=== PATIENT | female | born 1995 | race Caucasian/White ===

== ENCOUNTER 2018-09-11 17:07 | Emergency (ER) | payer BC, OTHER ==
[~2018-09-11] VITALS: Ht 157.5 cm; Wt 68.0 kg
[2018-09-11] MEDS ORDERED: KETOROLAC 30 MG/ML VIAL IVP ONE (17:30)
[2018-09-11] MEDS ORDERED: ORPHENADRINE 60 MG/2 ML (NORFLEX) AMP IV ONE (17:30)
--- OUTSIDE RECORDS SUMMARY | 2018-09-11 17:34 | XMS REPORT ---
Author Author ASHELY CHRISTOPHER Organization [facility] Address [address] [place] [address] Care Team Providers Care Group Home Paraprofessional Name Role Phone CHRISTOPHER LUND Unavailable PROBLEMS Unknown Problems ALLERGIES No Known Allergies ENCOUNTERS Encounter Location Date Diagnosis [place] [address] [id number] [place] [address] Jan, IUD surveillance Z30.431 [place] [address] [place] [id number] [place] [address] [phone]- 6655 Nov, Encounter for IUD insertion Z30.430 [place] [address] [address] Nov, Positive test Z32.01 [place] [address] [place] [id number] [place] [address] 92446- 0558 Nov, Positive test Z32.01 [place] [address] [place] [id number] [place] [address] 63485- [phone] Oct, Encounter for education about contraceptive use Z30.09 IMMUNIZATIONS No Known Immunizations SOCIAL HISTORY Never Assessed REASON FOR VISIT IUD Insertion -- avinash espinoza, consent signed, HCG negative PLAN OF CARE Activity Details Follow Up 4W. 4 Weeks Reason: Pending Test TEST, URINE (IN HOUSE) VITAL SIGNS Height 5'2" in 2017-12-04 Weight 148.0 lbs 2017-12-04 Temperature 98.0 degrees Fahrenheit 2017-12-04 Heart Rate 68 bpm 2017-12-04 Respiratory Rate 18 2017-12-04 BMI 27.07 kg/m2 2017-12-04 Blood pressure systolic 116 mmHg 2017-12-04 Blood pressure diastolic 68 mmHg 2017-12-04 MEDICATIONS Medication Instructions Dosage Frequency Start Date End Date Duration Status Юлия 13.5 MG as directed Nov, Active RESULTS No Results PROCEDURES Procedure Date Ordered Result Body Site URINE TEST December 04, 2017 INSERT INTRAUTERINE DEVICE December 04, 2017 INSTRUCTIONS MEDICATIONS ADMINISTERED No Known Medications
--- OUTSIDE RECORDS SUMMARY | 2018-09-11 17:34 | XMS REPORT | Continuity of Care Document ---
Author Author [facility] Organization [facility] Address Unknown Phone Unavailable Support Name Relationship Address Phone ALONDRA BARR MD Caregiver [address] [place] [address] [place] [address] Unavailable EVETTE LUDWIG Next Of Kin [address] [place] [address] Insurance Providers Guarantor Boy Ludwig Address [address] [place] [address] Email [email or web address] [employer] Other Policy Number [id number] Subscriber's Name VaniJonathan parker Relationship 19 Child Group Number [id number] Advance Directives Directive Response Recorded Date/Time Advanced Directives Type None 01/03/16 1:48am Chief Complaint and Reason for Visit Chief Complaint Back Pain or Injury Reason for Visit Back pain Pyelonephritis Problems Past Problems Medical Problem Onset Date Back pain Unknown Pyelonephritis Unknown Medications Current Home Medications Medication Dose Units Route Directions Days Qty Instructions Start Date Ciprofloxacin Hcl 500 Mg Tablet 500 Mg Oral Twice A Day 14 Tablet 01/03/16 Cyclobenzaprine Hcl 10 Mg Tablet 10 Mg Oral Three Times A Day as needed for Muscle Spasm 40 Tablet 01/03/16 Diclofenac Sodium 75 Mg Tablet. 75 Mg Oral Twice Daily With Meals 20 Tablet 01/03/16 Norgestimate-Ethinyl Estradiol (Sprintec 28 Day Tablet) 1 Tab Tablet 1 Tab Oral Daily 01/03/16 Social History Social History Problem Response Recorded Date/Time Onset Date Status Chewing Tobacco Status No 01/03/2016 1:54am Not Applicable Not Applicable Hx Substance Use No 01/03/2016 1:54am Not Applicable Not Applicable Hx Alcohol Use No 01/03/2016 1:54am Not Applicable Not Applicable Tobacco Usage none 01/03/2016 2:44am Not Applicable Not Applicable Query Response Start Date Stop Date Smoking Status Never smoker Hospital Discharge Instructions No hospital discharge instructions. Plan of Care Discharge Date 01/03/16 4:38am Disposition 01 DISCHARGED HOME, SELF-CARE Condition at Discharge Improved Instructions/Education Provided Low Back Pain Kidney Infection Prescriptions See Medication Section Referrals ULISSES BRUNSON MD Order Date: 1 Week Address: [address] [place] [address] [place] [address] Note: Additional Instructions/Education Rest. Drink plenty of fluids--especially those containing cranberry juice. Cipro 500mg twice daily for 7 days (antibiotic). Diclofenac 75mg twice daily with food--as needed for pain. Cyclobenzaprine 10mg--1 tablet 3 times daily as needed for muscle spasms. RETURN IF WORSENING. Care Plan and Goals Physician Care Plan Problem: Pyelonephritis. Back strain. Goal: Follow up with primary care provider Instructions: Take medications and follow care plan as discussed/written Functional Status No functional status results. Allergies, Adverse Reactions, Alerts Allergen Type Severity Reaction Status Last Updated Pertussis Vaccines Allergy Unknown DEHYDRATION,FEVER Active 01/03/16 Immunizations Query Response on File Recorded Date/Time Influenza Vaccine Hx NO 01/03/16 1:54am Vital Signs Acute Vital Signs Vital Response Date/Time Temperature (Fahrenheit) 98.0 deg F (96.8 - 99.1) 01/03/2016 4:32am Temperature (Calculated Celsius) 36.79935 degrees C (36.0 - 37.3) 01/03/2016 4:32am Pulse Rate (adult) 66 bpm (60 - 100) 01/03/2016 4:32am Respiratory Rate 17 breaths/min (10 - 20) 01/03/2016 4:32am O2 Sat by Pulse Oximetry 98 % (90 - 100) 01/03/2016 4:32am Blood Pressure 97/66 mm Hg 01/03/2016 4:32am Height (Feet) 5 feet 01/03/2016 1:50am Height (Inches) 2.00 inches 01/03/2016 1:50am Weight (Kilograms) 66.600 kg 01/03/2016 1:50am Body Mass Index (BMI) 26.0 01/03/2016 1:50am Results Laboratory Results Test Name Result Units Flags Reference Collection Date/Time Result Date/ Time Comments White Blood Count 16.0 T/MM3 H 4.5-11.0 01/03/2016 2:32am 01/03/2016 2: 42am Red Blood Count 4.64 M/MM3 4.00-5.20 01/03/2016 2:01/03/2016 2: 42am Hemoglobin 14.1 GM/DL 12-16 01/03/2016 2:3201/03/2016 2:42am Hematocrit 42.3 % 36-46 01/03/2016 2:3201/03/2016 2:42am Mean Corpuscular Volume 91.2 UM3 80-100 01/03/2016 2:01/03/2016 2: 42am Mean Corpuscular Hemoglobin 30.4 UUG 26-34 01/03/2016 2:2015 2:42am Mean Corpuscular Hemoglobin Concent 33.3 GM/DL 31-37 01/03/2016 2:01/03/2016 2:42am RDW Standard Deviation 40.6 FL 36.9-50.2 01/03/2016 2:01/03/2016 2 :42am Platelet Count 301 T/MM3 130-400 01/03/2016 2:3201/03/2016 2:42am Mean Platelet Volume 9.0 UM3 L 9.4-12.4 01/03/2016 2:01/03/2016 2: 42am Neutrophils (%) (Auto) 72.1 % H 33-66 01/03/2016 2:01/03/2016 2: 42am Lymphocytes (%) (Auto) 18.2 % L 23-45 01/03/2016 2:01/03/2016 2: 42am Monocytes (%) (Auto) 5.8 % 0-9.0 01/03/2016 2:01/03/2016 2:42am Eosinophils (%) (Auto) 3.3 % 0-4 01/03/2016 2:01/03/2016 2:42am Basophils (%) (Auto) 0.4 % 0-2 01/03/2016 2:01/03/2016 2:42am Immature Granulocyte % (Auto) 0.2 % 0.0-0.5 01/03/2016 2:2015 2:42am Absolute Neutrophils (auto) 11.5 T/MM3 H 1.8-7.7 01/03/2016 2:3201/02 2:42am Absolute Lymphocytes (auto) 2.9 T/MM3 1-4.8 01/03/2016 2:322015 2:42am Absolute Monocytes (auto) 0.9 T/MM3 H 0-0.8 01/03/2016 2:32am 2015 2:42am Absolute Eosinophils (auto) 0.5 T/MM3 0-0.5 01/03/2016 2:322015 2:42am Absolute Basophils (auto) 0.1 T/MM3 0-0.2 01/03/2016 2:3201/03/2016 2:42am Absolute Immature Granulocyte (auto 0.03 T/MM3 0.00-0.03 01/03/2016 2: 3201/03/2016 2:42am Icterus Index < 2 0-7 01/03/2016 2:3201/03/2016 2:41am Chemistry Specimen Hemolysis < 15 0-25 01/03/2016 2:3201/03/2016 2 :41am 0-25: Specimen Exhibited No Hemolysis. Turbidity < 20 0-20 01/03/2016 2:3201/03/2016 2:41am Sodium Level 139 MEQ/L 134-144 01/03/2016 2:3201/03/2016 2:41am Potassium Level 3.8 MEQ/L 3.6-5 01/03/2016 2:3201/03/2016 2:41am Chloride Level 106 MEQ/L 98-107 01/03/2016 2:3201/03/2016 2:41am Carbon Dioxide Level 20 MEQ/L L 22-30 01/03/2016 2:3201/03/2016 2: 41am Anion Gap 13 MEQ/L 5-15 01/03/2016 2:32am 01/03/2016 2:41am Blood Urea Nitrogen 11.0 MG/DL 7-17 01/03/2016 2:3201/03/2016 2: 41am Creatinine 0.6 MG/DL L 0.7-1.2 01/03/2016 2:3201/03/2016 2:41am BUN/Creatinine Ratio 18 RATIO 6-26 01/03/2016 2:3201/03/2016 2:41am Glomerular Filtration Rate Calc 129 01/03/2016 2:32am 01/03/2016 2: 41am Glucose Level 99 MG/DL 65-110 01/03/2016 2:3201/03/2016 2:41am Calculated Osmolality 267 MOSM/KG 261-280 01/03/2016 2:3201/03/2016 2:41am Calcium Level 9.4 MG/DL 8.4-10.2 01/03/2016 2:32am 01/03/2016 2:41am Urine Collection Type [place] 01/03/2016 2:322015 2:41am <1ML READ MICROSCOPIC UNSPUN --- 01/03/16 0240 --- USPEC previously reported as: [place] Urine Color YELLOW YELLOW 01/03/2016 2:3201/03/2016 2:37am Urine Turbidity CLEAR CLEAR 01/03/2016 2:32am 01/03/2016 2:37am Urine Specific [place] >=1.030 H 1.015-1.025 01/03/2016 2:322015 2:37am Urine pH 6.0 5.0-8.0 01/03/2016 2:32am 01/03/2016 2:37am Urine Leukocyte Esterase NEGATIVE NEGATIVE 01/03/2016 2:32am 2015 2:37am Urine Nitrite NEGATIVE NEGATIVE 01/03/2016 2:32am 01/03/2016 2:37am Urine Protein 2+ A NEGATIVE 01/03/2016 2:32am 01/03/2016 2:37am Urine Glucose (UA) NEGATIVE NEGATIVE 01/03/2016 2:32am 01/03/2016 2: 37am Urine Ketones NEGATIVE NEGATIVE 01/03/2016 2:32am 01/03/2016 2:37am Urine Urobilinogen 0.2 EU/DL NORMAL 01/03/2016 2:32am 01/03/2016 2: 37am Urine Bilirubin NEGATIVE NEGATIVE 01/03/2016 2:32am 01/03/2016 2: 37am Urine Blood 3+ A NEGATIVE 01/03/2016 2:32am 01/03/2016 2:37am Urine WBC 0-1 /HPF 0-5 01/03/2016 2:32am 01/03/2016 2:41am Urine RBC 20-30 /HPF H 0-3 01/03/2016 2:32am 01/03/2016 2:41am Urine Bacteria NONE SEEN NEGATIVE 01/03/2016 2:32am 01/03/2016 2: 41am Urine Amorphous Urates FEW 01/03/2016 2:32am 01/03/2016 2:41am Urine Culture Indicated CULT NOT INDICATED 01/03/2016 2:32am 2015 2:41am Procedures No known history of procedures. Encounters Encounter Location Arrival/Admit Date Discharge/Depart Date Attending Provider Departed Emergency Room [facility] 01/03/16 1:45am 01/03/16 4: 38am ALONDRA BARR MD Recent Diagnosis
--- OUTSIDE RECORDS SUMMARY | 2018-09-11 17:34 | XMS REPORT ---
Author Author ASHELY CHRISTOPHER Organization [facility] Address [address] [place] [address] Care Team Providers Care Machine Precision Engraver Name Role Phone MONISHA LUNDHANY Unavailable PROBLEMS Unknown Problems ALLERGIES No Known Allergies ENCOUNTERS Encounter Location Date Diagnosis [place] [address] [place] [address] Jan, IUD surveillance Z30.431 [place] [address] [place] [address] 26805- 9259 17 Nov, 2017 Encounter for IUD insertion Z30.430 [place] [address] [place] [address] [id number] [place] [address] 86744- 0587 Nov, Positive test Z32.01 [place] [address] [place] [address] 45187- 6531 Nov, Positive test Z32.01 [place] [address] [place] [address] 59602- 1146 Oct, Encounter for education about contraceptive use Z30.09 IMMUNIZATIONS No Known Immunizations SOCIAL HISTORY Never Assessed REASON FOR VISIT juan f/annabelle -- avinash espinoza PLAN OF CARE Activity Details Follow Up 1 Year Reason:well woman VITAL SIGNS Height 5'2" in 2018-01-21 Weight 155.0 lbs 2018-01-21 Temperature 98.0 degrees Fahrenheit 2018-01-21 Heart Rate 70 bpm 2018-01-21 Respiratory Rate 18 2018-01-21 BMI 28.35 kg/m2 2018-01-21 Blood pressure systolic 110 mmHg 2018-01-21 Blood pressure diastolic 76 mmHg 2018-01-21 MEDICATIONS Medication Instructions Dosage Frequency Start Date End Date Duration Status Юлия 13.5 MG as directed Nov, Active RESULTS No Results PROCEDURES No Known procedures INSTRUCTIONS MEDICATIONS ADMINISTERED No Known Medications
--- OUTSIDE RECORDS SUMMARY | 2018-09-11 17:34 | XMS REPORT ---
Author Author CHRISTOPHER LUND [facility] Address [address] [place] [address] Care Team Providers Care Supervisor Claims Name Role Phone CHRISTOPHER LUND Unavailable PROBLEMS Unknown Problems ALLERGIES No Information ENCOUNTERS Encounter Location Date Diagnosis [place] [address] [place] [address]81- [address] 04 Jan, 2018 IUD surveillance Z30.431 [place] [address] [place] [address] 72859- 8016 17 Nov, 2017 Encounter for IUD insertion Z30.430 [place] [address] [place] [address] 62273- 3562 10 Nov, 2017 Positive test Z32.01 [place] [address] [place] [address] 70888- 1934 Nov, Positive test Z32.01 [place] [address] [place] [address] 34463- 2321 Oct, Encounter for education about contraceptive use Z30.09 IMMUNIZATIONS No Known Immunizations SOCIAL HISTORY Never Assessed REASON FOR VISIT deferred lab PLAN OF CARE VITAL SIGNS MEDICATIONS Unknown Medications RESULTS No Results PROCEDURES No Known procedures INSTRUCTIONS MEDICATIONS ADMINISTERED No Known Medications
--- OUTSIDE RECORDS SUMMARY | 2018-09-11 17:34 | XMS REPORT ---
Author Author CHRISTOPHER LUND [facility] Address [address] [place] [address] Care Team Providers Care Metrology Technician Name Role Phone CHRISTOPHER LUND Unavailable PROBLEMS Unknown Problems ALLERGIES No Information ENCOUNTERS Encounter Location Date Diagnosis [place] [address] [place] [address] 72983- 5448 04 Jan, 2018 IUD surveillance Z30.431 [place] [address] [place] [address] 56718- 9885 17 Nov, 2017 Encounter for IUD insertion Z30.430 [place] [address] [place] [address] 04195- 9145 10 Nov, 2017 Positive test Z32.01 [place] [address] [place] [address] 84820- 7538 Nov, Positive test Z32.01 [place] [address] [place] [address] 86530- 1502 Oct, Encounter for education about contraceptive use Z30.09 IMMUNIZATIONS No Known Immunizations SOCIAL HISTORY Never Assessed REASON FOR VISIT Lab PLAN OF CARE VITAL SIGNS MEDICATIONS Unknown Medications RESULTS No Results PROCEDURES Procedure Date Ordered Result Body Site CHORIONIC GONADOTROPIN TEST November 27, 2017 VENIPUNCT, ROUTINE* November 27, 2017 INSTRUCTIONS MEDICATIONS ADMINISTERED No Known Medications
--- OUTSIDE RECORDS SUMMARY | 2018-09-11 17:34 | XMS REPORT ---
Author Author JAKOB DEL ANGEL Organization [facility] Address [address] [place] [address] Care Team Providers Care Linseed Oil Press Tender Name Role Phone JAKOB DEL ANGEL Unavailable PROBLEMS Unknown Problems ALLERGIES No Known Allergies ENCOUNTERS Encounter Location Date Diagnosis [place] [address] [place] [address] 45828- 7380 04 Jan, 2018 IUD surveillance Z30.431 [place] [address] [place] [address] [id number] [place] [address] 25190- 5371 17 Nov, 2017 Encounter for IUD insertion Z30.430 [place] [address] [id number] [place] [address] 29023- 2447 10 Nov, 2017 Positive test Z32.01 [place] [address] [place] [address] 01125- 3585 Nov, Positive test Z32.01 [place] [address] [place] [id number] [place] [address] 64154- 1601 Oct, Encounter for education about contraceptive use Z30.09 IMMUNIZATIONS No Known Immunizations SOCIAL HISTORY Never Assessed REASON FOR VISIT control consult -- avinash espinoza, patient would like to get the IUD , she just had a medical a week ago PLAN OF CARE Activity Details Follow Up prn Reason: VITAL SIGNS Height 5'2" in 2017-11-08 Weight 159.3 lbs 2017-11-08 Temperature 97.9 degrees Fahrenheit 2017-11-08 Heart Rate 79 bpm 2017-11-08 Respiratory Rate 18 2017-11-08 BMI 29.13 kg/m2 2017-11-08 Blood pressure systolic 120 mmHg 2017-11-08 Blood pressure diastolic 76 mmHg 2017-11-08 MEDICATIONS Unknown Medications RESULTS No Results PROCEDURES No Known procedures INSTRUCTIONS MEDICATIONS ADMINISTERED No Known Medications
--- OUTSIDE RECORDS SUMMARY | 2018-09-11 17:34 | XMS REPORT ---
Author Author TRNA DODD [facility] Address [address] [place] [address] Care Team Providers Care Classroom Technology Coach Name Role Phone YOUSIF TRAN Unavailable PROBLEMS Type Condition ICD9-CM Code ROD68-PD Code Onset Dates Condition Status SNOMED Code Problem Seasonal allergic rhinitis due to pollen J30.1 Active [id number] ALLERGIES No Known Allergies ENCOUNTERS Encounter Location Date Diagnosis [place] [address] [phone] Mar, Sore throat J02.9 and Seasonal allergic rhinitis due to pollen J30.1 [place] [address] [place] [address] [id number] [place] [address] 95155- 8590 Jan, IUD surveillance Z30.431 [place] [address] 66[address]- [address] 17 Nov, 2017 Encounter for IUD insertion Z30.430 [place] [address] [address]32- [address] Nov, Positive test Z32.01 [place] [address] [address]11- 1841 Nov, Positive test Z32.01 [place] [address] [address]33- [address] Oct, Encounter for education about contraceptive use Z30.09 IMMUNIZATIONS No Known Immunizations SOCIAL HISTORY Never Assessed REASON FOR VISIT Nausea/Sore throat , patient states someone at work have strep and she started having sor throat last week and she was told to get a work note she is not having sor throat also . PLAN OF CARE Activity Details Follow Up as needed or reg fu with pcp Reason: VITAL SIGNS Height 5'2" in 2018-04-15 Weight 216.27 lbs 2018-04-15 Temperature 98.6 degrees Fahrenheit 2018-04-15 BMI 39.55 kg/m2 2018-04-15 Blood pressure systolic 120 mmHg 2018-04-15 Blood pressure diastolic 76 mmHg 2018-04-15 MEDICATIONS Medication Instructions Dosage Frequency Start Date End Date Duration Status Юлия 13.5 MG as directed Nov, Active RESULTS No Results PROCEDURES Procedure Date Ordered Result Body Site STREP A ASSAY W/OPTIC Apr 15, 2018 INSTRUCTIONS MEDICATIONS ADMINISTERED No Known Medications
[2018-09-11 17:37] LABS: BILIRUBIN,URINE NEGATIVE (NEGATIVE); CLARITY,URINE CLEAR; COLOR,URINE YELLOW; GLUCOSE, URINE (UA) NEGATIVE (NEGATIVE); KETONES,URINE NEGATIVE (NEGATIVE); LEUKOCYTE ESTERASE ,URINE 1+ (NEGATIVE); NITRITE,URINE NEGATIVE (NEGATIVE); PH,URINE 6 (5-9); PROTEIN,URINE 2+ (NEGATIVE); UROBILINOGEN,URINE NORMAL (NORMAL)
[2018-09-11 17:38] LABS: BASOPHILS # (AUTO) 0.1 10^3/uL (0.0-0.1); BASOPHILS % (AUTO) 1 % (0-10); EOSINOPHILS # (AUTO) 0.3 10^3/uL (0.0-0.3); EOSINOPHILS % (AUTO) 3 % (0-10); HEMATOCRIT 42 % (35-52); HEMOGLOBIN 14.2 G/DL (11.5-16.0); LYMPHOCYTES # (AUTO) 3.3 X 10^3 (1.0-4.0); LYMPHOCYTES % (AUTO) 39 % (12-44); MEAN CORPUSCULAR HEMOGLOBIN 30 PG (25-34); MEAN CORPUSCULAR HGB CONC 34 G/DL (32-36); MEAN CORPUSCULAR VOLUME 91 FL (80-99); MONOCYTES # (AUTO) 0.7 X 10^3 (0.0-1.0); MONOCYTES % (AUTO) 9 % (0-12); NEUTROPHILS % (AUTO) 48 % (42-75); PLATELET COUNT 285 10^3/uL (130-400); RED BLOOD COUNT 4.67 10^6/uL (4.35-5.85); WHITE BLOOD COUNT 8.3 10^3/uL (4.3-11.0)
--- NOTE | 2018-09-11 17:38 | ED Chest Pain ---
General Chief Complaint: Chest Wall/Rib Pain Stated Complaint: PAIN BELOW L RIB Nursing Triage Note: PT REPORTS LEFT POSTERIOR RIB PAIN/CRAMP, NO INJURY NOTED FOR LAST 20 MINUTES. Nursing Sepsis Screen: No Definite Risk Source: patient Exam Limitations: no limitations History of Present Illness Date Seen by Provider: Sep 11, 2018 Time Seen by Provider: 17:36 Initial Comments To ER with sudden onset posterior left lower chest wall pain that began about 20 minutes ago. The pain is very intense, she's never had this before, it takes her breath away when it comes. It waxes and wanes. She cannot identify any exacerbating or alleviating factors. 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 NTG SL LEASES AND LAND SUPERVISOR: No Associated Symptoms: No nausea/vomiting Allergies and Home Medications Allergies Coded Allergies: No Known Drug Allergies (Unverified , 09/11/18) Home Medications Methocarbamol 750 Mg Tablet, 750 MG PO Q4H PRN for PAIN-MODERATE TO SEVERE Prescribed by: NIKKI DE LA ROSA on 09/11/181801 Naproxen 500 Mg Tablet, 500 MG PO BID PRN for PAIN-MODERATE TO SEVERE Prescribed by: NIKKI DE LA ROSA on 09/11/181801 Patient Home Medication List Home Medication List Reviewed: Yes Review of Systems Review of Systems Constitutional: see HPI; No chills, No fever EENTM: No Symptoms Reported Respiratory: See HPI; Denies Cough Cardiovascular: No Symptoms Reported Gastrointestinal: See HPI, Abdominal Pain Genitourinary: No Symptoms Reported Musculoskeletal: no symptoms reported Skin: no symptoms reported Psychiatric/Neurological: No Symptoms Reported Endocrine: No Symptoms Reported Hematologic/Lymphatic: No Symptoms Reported Past Akbkbhq-Vdoyci-Lympph Hx Patient Social History Alcohol Use: Denies Use Recreational Drug Use: No Recent Foreign Travel: No Contact w/Someone Who Travel: No Recent Infectious Disease Expo: No Recent Hopitalizations: No Physical Abuse: No Sexual Abuse: No Seasonal Allergies Seasonal Allergies: No Past Medical History Surgeries: No Respiratory: No Cardiac: No Neurological: No Genitourinary: No Gastrointestinal: No Musculoskeletal: No Endocrine: No HEENT: No Cancer: No Psychosocial: No Integumentary: No Blood Disorders: No Physical Exam Vital Signs Vital Signs - First Documented 09/11/18 17:15 Temp 98.2 Pulse 93 Resp 16 B/P (MAP) 138/104 (115) Pulse Ox 99 Capillary Refill : Less Than 3 Seconds Height, Weight, BMI Height: 5'2.00" Weight: 150lbs. oz. 68.637267na; BMI Method:Stated General Appearance: No Apparent Distress, WD/WN, Other (at this time pain is still present but reduced.) HEENT: PERRL/EOMI, TMs Normal Neck: Full Range of Motion, Normal Inspection Respiratory: No Accessory Muscle Use, No Respiratory Distress Cardiovascular: Regular Rate, Rhythm, Normal Peripheral Pulses Gastrointestinal: Normal Bowel Sounds, Non Tender, Soft Extremity: Normal Capillary Refill, Normal Inspection Neurologic/Psychiatric: Alert, Oriented x3 Skin: Normal Color, Warm/Dry Progress/Results/Core Measures Results/Orders Lab Results Laboratory Tests Test 09/11/18 17:18 Range/Units White Blood Count 8.3 4.3-11.0 10^3/uL Red Blood Count 4.67 4.35-5.85 10^6/uL Hemoglobin 14.2 11.5-16.0 G/DL Hematocrit 42 35-52 % Mean Corpuscular Volume 91 80-99 FL Mean Corpuscular Hemoglobin 30 25-34 PG Mean Corpuscular Hemoglobin Concent 34 32-36 G/DL Red Cell Distribution Width 13.0 10.0-14.5 % Platelet Count 285 130-400 10^3/uL Mean Platelet Volume 9.0 7.4-10.4 FL Neutrophils (%) (Auto) 48 42-75 % Lymphocytes (%) (Auto) 39 12-44 % Monocytes (%) (Auto) 9 0-12 % Eosinophils (%) (Auto) 3 0-10 % Basophils (%) (Auto) 1 0-10 % Neutrophils # (Auto) 4.0 1.8-7.8 X 10^3 Lymphocytes # (Auto) 3.3 1.0-4.0 X 10^3 Monocytes # (Auto) 0.7 0.0-1.0 X 10^3 Eosinophils # (Auto) 0.3 0.0-0.3 10^3/uL Basophils # (Auto) 0.1 0.0-0.1 10^3/uL Urine Color YELLOW Urine Clarity CLEAR Urine pH 6 5-[address] 1.025 H 1.016-1.022 Urine Protein 2+ H NEGATIVE Urine Glucose (UA) NEGATIVE NEGATIVE Urine Ketones NEGATIVE NEGATIVE Urine Nitrite NEGATIVE NEGATIVE Urine Bilirubin NEGATIVE NEGATIVE Urine Urobilinogen NORMAL NORMAL MG/DL Urine Leukocyte Esterase 1+ H NEGATIVE Urine RBC (Auto) 1+ H NEGATIVE Urine RBC 2-5 H /HPF Urine WBC 2-5 /HPF Urine Squamous Epithelial Cells 10-25 H /HPF Urine Crystals NONE /LPF Urine Bacteria FEW H /HPF Urine Casts NONE /LPF Urine Mucus LARGE H /LPF Urine Culture Indicated NO Sodium Level 137 135-145 MMOL/L Potassium Level 4.0 3.6-5.0 MMOL/L Chloride Level 106 98-107 MMOL/L Carbon Dioxide Level 20 L 21-32 MMOL/L Anion Gap 11 5-14 MMOL/L Blood Urea Nitrogen 16 7-18 MG/DL Creatinine 0.80 0.60-1.30 MG/DL Estimat Glomerular Filtration Rate > 60 BUN/Creatinine Ratio 20 Glucose Level 102 70-105 MG/DL Calcium Level 9.3 8.5-10.1 MG/DL Corrected Calcium 9.0 8.5-10.1 MG/DL Total Bilirubin 0.4 0.1-1.0 MG/DL Aspartate Amino Transf (AST/SGOT) 19 5-34 U/L Alanine Aminotransferase (ALT/SGPT) 13 0-55 U/L Alkaline Phosphatase 65 40-136 U/L Total Protein 7.6 6.4-8.2 GM/DL Albumin 4.4 3.2-4.5 GM/DL My Orders Orders - NIKKI DE LA ROSA APRN Chest Pa/Lat (2 View) (09/11/18 17:23) Ct Abd/Pelvis Wo(Kidney Stone) (09/11/18 17:23) Cbc With Automated Diff (09/11/18 17:23) Comprehensive Metabolic Panel (09/11/18 17:23) Ua Culture If Indicated (09/11/18 17:23) Urine Bedside (09/11/18 17:23) Iv Heplock-Insert (Order) (09/11/18 17:23) Ketorolac Injection (Toradol Injection) (09/11/18 17:30) Orphenadrine Injection (Norflex Injectio (09/11/18 17:30) Fentanyl Injection (Sublimaze Injection (09/11/18 18:15) Medications Given in ED Current Medications Medications Dose Ordered Sig/Raymond Route Start Time Stop Time Status Last Admin Dose Admin Fentanyl Citrate 50 mcg ONCE ONCE IVP 09/11/18 18:15 09/11/18 18:16 DC 09/11/18 18:44 50 MCG Ketorolac Tromethamine 15 mg ONCE ONCE IVP 09/11/18 17:30 09/11/18 17:31 DC 09/11/18 17:33 15 MG Orphenadrine Citrate 30 mg ONCE ONCE IV 09/11/18 17:30 09/11/18 17:31 DC 09/11/18 17:33 30 MG Vital Signs/I&O 09/11/18 17:15 Temp 98.2 Pulse 93 Resp 16 B/P (MAP) 138/104 (115) Pulse Ox 99 Blood Pressure Mean: 115 Urine -Bedside: Negative Diagnostic Imaging Diagonstic Imaging: CT Comments NAME: [facility] REC#: [id number] PT STATUS: REG ER : 1995 PHYSICIAN: NIKKI DE LA ROSA AUTOMATION AND CONTROLS INSTRUCTOR ADMIT DATE: 09/11/18/ER Draft Date of Exam:09/11/18 CT ABD/PELVIS WO(KIDNEY STONE) PROCEDURE: CT urinary tract, rule out kidney stone. TECHNIQUE: Multiple contiguous axial images were obtained through the abdomen and pelvis without the use of intravenous contrast. INDICATION: Left flank pain. FINDINGS: Unenhanced images of the liver and spleen reveal no focal abnormality. Gallbladder, pancreas, and adrenal glands are also unremarkable. There is no evidence of renal calculus or hydronephrosis. No ureteric stone or dilatation is identified. The appendix has a normal appearance. There is no free fluid in the abdomen or pelvis. No organized fluid collection is identified. No bladder abnormality is seen. There is a well-positioned intrauterine device. IMPRESSION: No acute abnormality is identified. Dictated on workstation # [id number] Dict: 09/11/18 1754 Trans: 09/11/18 [id number] Interpreted by: VIC BANDA MD Electronically signed by: Departure Communication (Admissions) [id number] she is pain-free at this time. We will discharge to home. Impression Primary Impression: Posterior chest wall pain Disposition: HOME, SELF-CARE Condition: Stable Departure-Patient Inst. Decision time for Depature: 18:01 Referrals: [facility] (PCP/Family) Primary Care Physician Patient Instructions: Chest Pain Add. Discharge Instructions: 1. Pain medication as directed 2. Return to ER for any concerns 3. All discharge instructions reviewed with patient and/or family. Voiced understanding. Scripts Methocarbamol (Robaxin-750) 750 Mg Tablet 750 MG PO Q4H PRN for PAIN-MODERATE TO SEVERE, #14 TAB Prov: NIKKI DE LA ROSA APRN 09/11/18 Naproxen (Naprosyn) 500 Mg Tablet 500 MG PO BID PRN for PAIN-MODERATE TO SEVERE, #30 TAB Prov: NIKKI DE LA ROSA APRN 09/11/18 Images Torso/Trunk 1 - Other-See Progress Note NIKKI DE LA ROSA APRN Sep 11, 2018 17:38
[2018-09-11 17:45] LABS: BACTERIA,URINE FEW /HPF
[2018-09-11 17:51] LABS: ALANINE AMINOTRANSFERASE 13 U/L (0-55); ALBUMIN 4.4 GM/DL (3.2-4.5); ALKALINE PHOSPHATASE 65 U/L (40-136); BILIRUBIN,TOTAL 0.4 MG/DL (0.1-1.0); BUN/CREATININE RATIO 20; CALCIUM 9.3 MG/DL (8.5-10.1); CARBON DIOXIDE 20 MMOL/L (21-32); CHLORIDE 106 MMOL/L (98-107); GFR ESTIMATED > 60; GLUCOSE 102 MG/DL (70-105); SODIUM 137 MMOL/L (135-145); TOTAL PROTEIN 7.6 GM/DL (6.4-8.2)
--- NOTE | 2018-09-11 17:58 | Diagnostic Imaging Report ---
PROCEDURE: CT urinary tract, rule out kidney stone. TECHNIQUE: Multiple contiguous axial images were obtained through the abdomen and pelvis without the use of intravenous contrast. INDICATION: Left flank pain. FINDINGS: Unenhanced images of the liver and spleen reveal no focal abnormality. Gallbladder, pancreas, and adrenal glands are also unremarkable. There is no evidence of renal calculus or hydronephrosis. No ureteric stone or dilatation is identified. The appendix has a normal appearance. There is no free fluid in the abdomen or pelvis. No organized fluid collection is identified. No bladder abnormality is seen. There is a well-positioned intrauterine device. IMPRESSION: No acute abnormality is identified. Dictated by: Dictated on workstation # [id number]
--- NOTE | 2018-09-11 18:01 | Diagnostic Imaging Report ---
INDICATION: Rib and chest pain. EXAMINATION: PA and lateral views of the chest were obtained. FINDINGS: Heart size and pulmonary vascularity are within normal limits, and the lungs are clear, bilaterally. IMPRESSION: Unremarkable chest. Dictated by: Dictated on workstation # [id number]
[2018-09-11] MEDS ORDERED: NAPR-1071 PO (18:02)
[2018-09-11] MEDS ORDERED: METH-313 PO (18:02)
[2018-09-11] MEDS ORDERED: fentaNYL INJECTION 100 MCG/2 ML AMP IVP ONE (18:15)
[2018-09-11 19:37] VITALS: BP 110/87
[2018-09-12] MEDS ORDERED: NITR-65 PO (01:54)
[2018-09-12] MEDS ORDERED: ONDA4TAB11 PO (01:54)
[2018-09-12] MEDS ORDERED: HYDR-87 PO (01:54)
[2018-09-12] MEDS ORDERED: TAMS0.4C98 PO ×2 (01:54→01:55)
== END 2018-09-11 19:37 | disposition home or self-care (01) ==
LOC: ER 17:09
DX: R07.89 Other chest pain (principal)
CPT/HCPCS: 36415; 71046; 74176; 80053; 81000; 84703; 85025

== ENCOUNTER 2018-09-11 23:33 | Emergency (ER) | payer BC ==
[~2018-09-11] VITALS: Ht 160 cm; Wt 56.7 kg
[~2018-09-11 23:33] MED LIST: METH-313 PO; NAPR-1071 PO
[2018-09-12] MEDS ORDERED: ORPHENADRINE 60 MG/2 ML (NORFLEX) AMP IV STA (00:04)
[2018-09-12] MEDS ORDERED: LACTATED RINGERS 1,000 ML IV ONE (00:04)
[2018-09-12] MEDS ORDERED: KETOROLAC 30 MG/ML VIAL IVP STA (00:04)
--- NOTE | 2018-09-12 00:12 | ED Abdominal Pain ---
General Stated Complaint: LEFT SIDE & PELVIC PAIN Source of Information: Patient History of Present Illness Date Seen by Provider: Sep 12, 2018 Time Seen by Provider: 23:55 Initial Comments PT ARRIVES VIA POV FROM HOME C/O SEVERE LEFT FLANK PAIN RADIATING TO LEFT MID ABDOMEN AND LLQ C/O NAUSEA ND VOMITING X 6 EPISODES NO DIARRHEA.NO CONSTIPATION--HAS HAD A NORMAL BM IN LAST 24 HOURS NO BURNING ON URINATION, BUT TO USE THE BATHROOM CAUSES INCREASE IN LEFT FLANK PAIN AND IS HAVING URGENCY NO FEVER NO HISTORY OF SIMILAR PT STATES SYMPTOMS BEGAN AROUND 1700 TODAY, AND CAME TO ER HAD FULL WORK-UP, INCLUDING LAB, UA, XRAYS AND CT CT WAS NEGATIVE FOR ACUTE PROCESS OR EVIDENCE OF KIDNEY STONES. UA HAD SMALL AMOUNT OF BLOOD AND BACTERIA PT WAS SENT HOME WITH RX'S FOR NAPROXEN AND ROBAXIN--STATES SHE TRIED TO TAKE THEM BUT THREW THEM UP. STATES SHE HAS NOT BEEN ABLE TO DRINK ANYTHING SINCE SHE HAS BEEN HOME, DUE TO PAIN AND NAUSEA/VOMITING NO HISTORY OF SIMILAR PAIN THIS IS WORST PAIN SHE HAS EVER EXPERIENCED. LMP--UNKNOWN, PT HAS IUD AND DOES NOT HAVE PERIODS. NO VAGINAL BLEEDING OR DISCHARGE. PCP; [facility] Allergies and Home Medications Allergies Coded Allergies: No Known Drug Allergies (Unverified , 09/11/18) Home Medications Hydrocodone/Ibuprofen 1 Each Tablet, 1 EACH PO Q4H Prescribed by: JOSE JEAN on 09/12/18153 Methocarbamol 750 Mg Tablet, 750 MG PO Q4H PRN for PAIN-MODERATE TO SEVERE Prescribed by: NIKKI DE LA ROSA on 09/11/181801 Naproxen 500 Mg Tablet, 500 MG PO BID PRN for PAIN-MODERATE TO SEVERE Prescribed by: NIKKI DE LA ROSA on 09/11/181801 Nitrofurantoin Monohyd/M-Cryst 100 Mg Capsule, 100 MG PO BID Prescribed by: JOSE JEAN on 09/12/18153 Ondansetron 4 Mg Tab.rapdis, 4 MG PO Q4H Prescribed by: JOSE JEAN on 09/12/18153 Tamsulosin HCl 0.4 Mg Cap, 0.4 MG PO DAILY Prescribed by: JOSE JEAN on 09/12/18153 Tamsulosin HCl 0.4 Mg Cap, 0.4 MG PO DAILY Prescribed by: JOSE JEAN on 1/24/19 0155 Patient Home Medication List Home Medication List Reviewed: Yes Review of Systems Review of Systems Constitutional: no symptoms reported Respiratory: No Symptoms Reported Cardiovascular: No Symptoms Reported Gastrointestinal: See HPI, Abdominal Pain, Nausea, Vomiting Genitourinary: See HPI, Flank Pain, Urgency Musculoskeletal: see HPI, back pain Skin: no symptoms reported Psychiatric/Neurological: No Symptoms Reported Endocrine: No Symptoms Reported Hematologic/Lymphatic: No Symptoms Reported Past Updjvvt-Gzqnpn-Agppvt Hx Patient Social History Alcohol Use: Denies Use Recreational Drug Use: No Smoking Status: Never a Smoker Recent Foreign Travel: No Contact w/Someone Who Travel: No Recent Hopitalizations: No Seasonal Allergies Seasonal Allergies: No Past Medical History Surgeries: No Respiratory: No Cardiac: No Neurological: No : No Reproductive Disorders: No 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 oz. 68.181190ox; BMI Method:Stated General Appearance: WD/WN, other (PT ANXIOUS, HOLDING LEFT FLANK, UNABLE TO LAY STILL.MOANING AND SOBBING. LOOKS UNCOMFORTABLE) Neck: normal inspection Respiratory: normal breath sounds, no respiratory distress, no accessory muscle use Cardiovascular: regular rate, rhythm, no murmur Gastrointestinal: normal bowel sounds, soft, no organomegaly, no pulsatile mass ; No distended; guarding (LEFT FLANK); No rebound; tenderness (LLQ AND LEFT FLANK); No hernia, No mass Extremities: normal inspection Back: CVA tenderness (L) Neurologic/Psychiatric: spud driller II-XII nml as tested, no motor/sensory deficits, alert, oriented x 3, other (ANXIOUS) Skin: normal color, warm/dry; No rash Progress/Results/Core Measures Results/Orders Lab Results Laboratory Tests Test 09/12/18 00:15 09/12/18 01:25 Range/Units White Blood Count 15.4 H 4.3-11.0 10^3/uL Red Blood Count 4.45 4.35-5.85 10^6/uL Hemoglobin 13.7 11.5-16.0 G/DL Hematocrit 40 35-52 % Mean Corpuscular Volume 89 80-99 FL Mean Corpuscular Hemoglobin 31 25-34 PG Mean Corpuscular Hemoglobin Concent 34 32-36 G/DL Red Cell Distribution Width 12.9 10.0-14.5 % Platelet Count 314 130-400 10^3/uL Mean Platelet Volume 9.1 7.4-10.4 FL Neutrophils (%) (Auto) 84 H 42-75 % Lymphocytes (%) (Auto) 11 L 12-44 % Monocytes (%) (Auto) 5 0-12 % Eosinophils (%) (Auto) 1 0-10 % Basophils (%) (Auto) 0 0-10 % Neutrophils # (Auto) 12.9 H 1.8-7.8 X 10^3 Lymphocytes # (Auto) 1.7 1.0-4.0 X 10^3 Monocytes # (Auto) 0.7 0.0-1.0 X 10^3 Eosinophils # (Auto) 0.1 0.0-0.3 10^3/uL Basophils # (Auto) 0.0 0.0-0.1 10^3/uL Neutrophils % (Manual) 78 % Lymphocytes % (Manual) 12 % Monocytes % (Manual) 2 % Eosinophils % (Manual) 0 % Basophils % (Manual) 0 % Band Neutrophils 2 % Reactive Lymphocytes 6 % Blood Morphology Comment NORMAL Sodium Level 139 135-145 MMOL/L Potassium Level 3.8 3.6-5.0 MMOL/L Chloride Level 108 H 98-107 MMOL/L Carbon Dioxide Level 17 L 21-32 MMOL/L Anion Gap 14 5-14 MMOL/L Blood Urea Nitrogen 17 7-18 MG/DL Creatinine 0.92 0.60-1.30 MG/DL Estimat Glomerular Filtration Rate > 60 BUN/Creatinine Ratio 18 Glucose Level 129 H 70-105 MG/DL Calcium Level 9.4 8.5-10.1 MG/DL Corrected Calcium 9.2 8.5-10.1 MG/DL Total Bilirubin 0.5 0.1-1.0 MG/DL Aspartate Amino Transf (AST/SGOT) 17 5-34 U/L Alanine Aminotransferase (ALT/SGPT) 15 0-55 U/L Alkaline Phosphatase 63 40-136 U/L Total Protein 7.1 6.4-8.2 GM/DL Albumin 4.3 3.2-4.5 GM/DL Amylase Level 59 25-125 U/L Lipase 20 8-78 U/L Serum Test, Qualitative NEGATIVE NEGATIVE Urine Color YELLOW Urine Clarity SL CLOUDY Urine pH 6 5-9 Urine Specific [place] 1.020 1.016-1.022 Urine Protein 2+ H NEGATIVE Urine Glucose (UA) NEGATIVE NEGATIVE Urine Ketones 4+ H NEGATIVE Urine Nitrite NEGATIVE NEGATIVE Urine Bilirubin 1+ H NEGATIVE Urine Urobilinogen NORMAL NORMAL MG/DL Urine Leukocyte Esterase 1+ H NEGATIVE Urine RBC (Auto) 2+ H NEGATIVE Urine RBC 0-2 /HPF Urine WBC 0-2 /HPF Urine Squamous Epithelial Cells 0-2 /HPF Urine Crystals NONE /LPF Urine Bacteria MODERATE H /HPF Urine Casts NONE /LPF Urine Mucus SMALL H /LPF Urine Culture Indicated YES Urine Opiates Screen POSITIVE H NEGATIVE Urine Oxycodone Screen NEGATIVE NEGATIVE Urine Methadone Screen NEGATIVE NEGATIVE Urine Propoxyphene Screen NEGATIVE NEGATIVE Urine Barbiturates Screen NEGATIVE NEGATIVE Ur Tricyclic Antidepressants Screen NEGATIVE NEGATIVE Urine Phencyclidine Screen NEGATIVE NEGATIVE Urine Amphetamines Screen NEGATIVE NEGATIVE Urine Methamphetamines Screen NEGATIVE NEGATIVE Urine Benzodiazepines Screen NEGATIVE NEGATIVE Urine Cocaine Screen NEGATIVE NEGATIVE Urine Cannabinoids Screen NEGATIVE NEGATIVE My Orders Orders - MIRANDAFRANCESA K DO Saline Lock/Iv-Start (09/12/18 00:04) Amylase (09/12/18 00:04) Cbc With Automated Diff (09/12/18 00:04) Comprehensive Metabolic Panel (09/12/18 00:04) Drug Screen Stat (Urine) (09/12/18 00:04) Hcg,Qualitative Serum (09/12/18 00:04) Lipase (09/12/18 00:04) Ua Culture If Indicated (09/12/18 00:04) Saline Lock/Iv-Start (09/12/18 00:04) Ondansetron Injection (Zofran Injectio (09/12/18 00:15) Lactated Ringers (Lr 1000 Ml Iv Solution (09/12/18 00:04) Ketorolac Injection (Toradol Injection) (09/12/18 00:04) Orphenadrine Injection (Norflex Injectio (09/12/18 00:04) Manual Differential (09/12/18 00:15) Alfuzosin (Not Stocked) (Uroxatral (Not (09/12/18 00:45) Morphine Injection (Morphine Injection (09/12/18 00:33) Promethazine Injection (Phenergan Injec (09/12/18 00:45) Urine Culture (09/12/18 01:25) Rx-Hydrocodone/Apap 5-325 Mg (Rx-Vicodin (09/12/18 02:00) Rx-Nitrofurantoin Terry (Rx-Macrobid) (09/12/18 01:54) Rx-Ondansetron Po (Rx-Zofran Po) (09/12/18 01:54) Morphine Injection (Morphine Injection (09/12/18 00:44) Rx-Hydrocodone/Apap 5-325 Mg (Rx-Vicodin (09/12/18 02:02) Rx-Nitrofurantoin Terry (Rx-Macrobid) (09/12/18 02:02) Rx-Ondansetron Po (Rx-Zofran Po) (09/12/18 02:02) Medications Given in ED Current Medications Medications Dose Ordered Sig/Raymond Route Start Time Stop Time Status Last Admin Dose Admin Acetaminophen/ Hydrocodone Bitart 1 ea Q4H PRN PO 09/12/18 02:00 09/12/18 02:21 DC 09/12/18 02:13 1 EA Lactated Ringer's 1,000 ml @ 0 mls/hr Q0M ONCE IV 09/12/18 00:04 09/12/18 00:08 DC 09/12/18 00:16 1,000 MLS/HR Ondansetron HCl 4 mg ONCE ONCE IVP 09/12/18 00:15 09/12/18 00:16 DC 09/12/18 00:19 4 MG Promethazine HCl 25 mg ONCE ONCE IVP 09/12/18 00:45 09/12/18 00:46 DC 09/12/18 00:53 25 MG Vital Signs/I&O 09/11/18 09/12/18 23:53 02:17 Temp 97.6 97.6 Pulse 81 84 Resp 20 20 B/P (MAP) 133/88 (103) 118/78 (91) Pulse Ox 100 96 O2 Delivery Room Air Room Air Progress Progress Note : Progress Note REVIEWED CT DONE EARLIER, THIS EVENING, PT APPEARS TO HAVE 1-2 MM PUNCTATE CALCIFICATION IN AREA OF LEFT UVJ, WITHOUT HYDRONEPHROSIS, ON MY REVIEW. PT WITH TYPICAL SYMPTOMS OF KIDNEY STONE AND HAS MICROSCOPIC HEMATURIA. PT ALSO REPORTS THAT HER FATHER HAS HAD KIDNEY STONES. SYMPTOMS RESOLVED WITH MEDICATIONS AND PT SLEPT FOR REMAINDER OF ER STAY AT DISMISSAL, PT IS SYMPTOM-FREE Departure Impression Primary Impression: Left flank pain Additional Impressions: Microscopic hematuria Urinary tract infection POSSIBLE URETERAL STONE Disposition: 01 HOME, SELF-CARE Condition: Improved Departure-Patient Inst. Referrals: [facility] [place] Primary Care Physician Patient Instructions: Kidney Stones (DC), Renal Colic (DC), Urinary Tract Infection, Adult (DC) Add. Discharge Instructions: LOTS OF CLEAR LIQUIDS STRAIN ALL URINE--RETURN ANY STONES TO YOUR DR'S OFFICE TAKE YOUR PAIN MEDICATION PRESCRIBED RETURN TO ER IF SYMPTOMS WORSEN Scripts Tamsulosin HCl (Flomax) 0.4 Mg Cap 0.4 MG PO DAILY, #10 CAP Prov: FRANCES JEANA K DO 09/12/18 Hydrocodone/Ibuprofen (Hydrocodone-Ibuprofen 7.5-200) 1 Each Tablet 1 EACH PO Q4H for Pain MDD 6, #20 TAB Prov: MIRANDAFRANCESA K DO 09/12/18 Ondansetron (Ondansetron Odt) 4 Mg Tab.rapdis 4 MG PO Q4H for Nausea/Vomiting, #10 TAB Prov: MIRANDAFRANCESA K DO 09/12/18 Tamsulosin HCl (Flomax) 0.4 Mg Cap 0.4 MG PO DAILY, #10 CAP Prov: MIRANDAFRANCESA K DO 09/12/18 Nitrofurantoin Monohyd/M-Cryst (Macrobid 100 mg Capsule) 100 Mg Capsule 100 MG PO BID, #20 CAP Prov: MIRANDAJOSE K DO 09/12/18 MIRANDAJOSE K DO Sep 12, 2018 00:12
[2018-09-12] MEDS ORDERED: ONDANSETRON 4 MG/2 ML (SDV) Z0FRAN IVP ONE (00:15)
[2018-09-12 00:30] LABS: BASOPHILS % (AUTO) 0 % (0-10); EOSINOPHILS # (AUTO) 0.1 10^3/uL (0.0-0.3); EOSINOPHILS % (AUTO) 1 % (0-10); HEMATOCRIT 40 % (35-52); HEMOGLOBIN 13.7 G/DL (11.5-16.0); LYMPHOCYTES # (AUTO) 1.7 X 10^3 (1.0-4.0); LYMPHOCYTES % (AUTO) 11 % (12-44); MEAN CORPUSCULAR HEMOGLOBIN 31 PG (25-34); MEAN CORPUSCULAR HGB CONC 34 G/DL (32-36); MEAN CORPUSCULAR VOLUME 89 FL (80-99); MEAN PLATELET VOLUME 9.1 FL (7.4-10.4); MONOCYTES # (AUTO) 0.7 X 10^3 (0.0-1.0); MONOCYTES % (AUTO) 5 % (0-12); NEUTROPHILS # (AUTO) 12.9 X 10^3 (1.8-7.8); NEUTROPHILS % (AUTO) 84 % (42-75); PLATELET COUNT 314 10^3/uL (130-400); RED BLOOD COUNT 4.45 10^6/uL (4.35-5.85); RED CELL DISTRIBUTION WIDTH 12.9 % (10.0-14.5); WHITE BLOOD COUNT 15.4 10^3/uL (4.3-11.0)
[2018-09-12] MEDS ORDERED: morphine INJ 10 MG/ML 1ML (SYR OR VIAL) IVP STA (00:33)
[2018-09-12 00:43] LABS: BAND NEUTROPHILS 2 %; BASOPHILS % (MANUAL) 0 %; EOSINOPHILS % (MANUAL) 0 %; LYMPHOCYTES % (MANUAL) 12 %; MONOCYTES % (MANUAL) 2 %; NEUTROPHILS % (MANUAL) 78 %; RBC MORPH NORMAL; REACTIVE LYMPHOCYTES 6 %
[2018-09-12] MEDS ORDERED: morphine INJ 10 MG/ML 1ML (SYR OR VIAL) ONE (00:44)
[2018-09-12] MEDS ORDERED: PROMETHAZINE INJ 25 MG/ML (PHENERGAN) AMP IVP ONE (00:45)
[2018-09-12] MEDS ORDERED: ALFUZOSIN HCL 10 MG TAB (UROXATRAL) PO SCH (00:45)
[2018-09-12 00:51] LABS: ALANINE AMINOTRANSFERASE 15 U/L (0-55); ALBUMIN 4.3 GM/DL (3.2-4.5); ALKALINE PHOSPHATASE 63 U/L (40-136); AMYLASE 59 U/L (25-125); BILIRUBIN,TOTAL 0.5 MG/DL (0.1-1.0); BUN/CREATININE RATIO 18; CALCIUM 9.4 MG/DL (8.5-10.1); CARBON DIOXIDE 17 MMOL/L (21-32); CHLORIDE 108 MMOL/L (98-107); CREATININE SERUM 0.92 MG/DL (0.60-1.30); GFR ESTIMATED > 60; GLUCOSE 129 MG/DL (70-105); LIPASE 20 U/L (8-78); POTASSIUM 3.8 MMOL/L (3.6-5.0); SODIUM 139 MMOL/L (135-145); TOTAL PROTEIN 7.1 GM/DL (6.4-8.2)
[2018-09-12 01:33] LABS: BILIRUBIN,URINE 1+ (NEGATIVE); COLOR,URINE YELLOW; GLUCOSE, URINE (UA) NEGATIVE (NEGATIVE); KETONES,URINE 4+ (NEGATIVE); LEUKOCYTE ESTERASE ,URINE 1+ (NEGATIVE); NITRITE,URINE NEGATIVE (NEGATIVE); PH,URINE 6 (5-9); PROTEIN,URINE 2+ (NEGATIVE); UROBILINOGEN,URINE NORMAL (NORMAL)
[2018-09-12 01:39] LABS: CLARITY,URINE SL CLOUDY
[2018-09-12 01:40] LABS: BACTERIA,URINE MODERATE /HPF; RBC,URINE 0-2 /HPF; SQUAMOUS EPITHELIAL CELL,UR 0-2 /HPF; WBC,URINE 0-2 /HPF
[2018-09-12] MEDS ORDERED: NITR-65 PO (01:54)
[2018-09-12] MEDS ORDERED: HYDR-87 PO (01:54)
[2018-09-12] MEDS ORDERED: RX-NITROFURANTOIN 100 MG (MACROBID) CAP PPK#2 PO STA (01:54)
[2018-09-12] MEDS ORDERED: TAMS0.4C98 PO ×2 (01:54→01:55)
[2018-09-12] MEDS ORDERED: ONDA4TAB11 PO (01:54)
[2018-09-12] MEDS ORDERED: RX-ONDANSETRON 4 MG ODT (ZOFRAN) PPK #4 PO STA (01:54)
[2018-09-12 01:56] LABS: BENZODIAZEPINES SCREEN URINE NEGATIVE (NEGATIVE); COCAINE SCREEN URINE NEGATIVE (NEGATIVE)
[2018-09-12 01:57] LABS: AMPHETAMINE SCREEN, URINE NEGATIVE (NEGATIVE); BARBITURATE SCREEN URINE NEGATIVE (NEGATIVE); CANNABINOID SCREEN, URINE NEGATIVE (NEGATIVE); METHADONE STAT NEGATIVE (NEGATIVE); METHAMPHETAMINE SCREEN URINE S NEGATIVE (NEGATIVE); OPIATE SCREEN URINE POSITIVE (NEGATIVE); OXYCODONE STAT NEGATIVE (NEGATIVE); PROPOXYPHENE STAT NEGATIVE (NEGATIVE); TRICYCLIC ANTIDEPRESSANTS SCRE NEGATIVE (NEGATIVE)
[2018-09-12] MEDS ORDERED: RX-HYDROCODONE/APAP 5/325 MG #4 TAB PK PO PRN (02:00)
[2018-09-12] MEDS ORDERED: RX-NITROFURANTOIN 100 MG (MACROBID) CAP PPK#2 PO ONE (02:02)
[2018-09-12] MEDS ORDERED: RX-ONDANSETRON 4 MG ODT (ZOFRAN) PPK #4 ONE (02:02)
[2018-09-12] MEDS ORDERED: RX-HYDROCODONE/APAP 5/325 MG #4 TAB PK PO ONE (02:02)
[2018-09-12 02:17] VITALS: BP 118/78
== END 2018-09-12 02:21 | disposition home or self-care (01) ==
LOC: ER 23:33 → EDUNIT# 23:33 → ER 09-12 02:21
DX: N39.0 Urinary tract infection, site not specified (principal); Z97.5 Presence of (intrauterine) contraceptive device
CPT/HCPCS: 36415; 80053; 80306; 81000; 82150; 83690; 84703; 85007; 85027; 87088